=== PATIENT | female | born 1950 | race Two or more races ===

== ENCOUNTER 2022-05-23 19:12 | Inpatient (IN) | payer MEDICARE, MEDICAID ==
[~2022-05-23] VITALS: Ht 157.5 cm; Wt 101.0 kg
[~2022-05-23 19:12] MED LIST: ALPR1TAB7 PO; AMLO-257 PO; ASPI81TA39 PO; ATOR40TA28 PO; ESCI20TA87 PO; FAMO40TA76 PO; LANS30CA55 PO; LEVO125T4 PO; METO25 PO; OLME40TA70 PO; PIOG15TA6 PO; PREG150C PO; TRAM50TA4 PO
[2022-05-23] MEDS ORDERED: SODIUM CHLORIDE 0.9% 2,000 ML IV ONE (19:30)
[2022-05-23 19:55] LABS: ABG BASE EXCESS 0.5 mmol/L (-2.0-3.0); ABG HCO3 24.3 mmol/L (22.0-26.0); ABG METHEMOGLOBIN 0.2 % (0.0-1.5); ABG OXYGEN CONTENT 16.7 mL/dL (15.0-23.0); ABG OXYGEN SATURATION 99.4 % (95.0-98.0); ABG OXYHEMOGLOBIN 99.2 % (94.0-100.0); ABG PCO2 58 mmHg (35-45); ABG PH 7.288 (7.35-7.450); ABG TOTAL HEMOGLOBIN 11.3 G/dL (12.0-18.0); PO2, ARTERIAL BG 355.9 mmHg (75.0-83.0); SOURCE, BLOOD GAS ARTERIAL; TEMPERATURE, FAHRENHEIT, BG 98.6 FAHREN (96.0-98.6)
[2022-05-23 19:56] LABS: O2 DEVICE,BLOOD GAS NON REBREATHER (ROOM AIR); SITE, BLOOD GAS RT RADIAL
[2022-05-23] MEDS ORDERED: OXYGEN THERAPY IH SCH (20:00)
[2022-05-23 20:02] LABS: BASOPHILS % (AUTO) 0.8 % (0.0-2.0); EOSINOPHILS % (AUTO) 0.2 % (1.0-6.0); HEMATOCRIT 25.2 % (36-46); LYMPHOCYTES # (AUTO) 1.6 K/uL (1.0-4.8); LYMPHOCYTES % (AUTO) 18.9 % (22.0-44.0); MEAN CORPUSCULAR HEMOGLOBIN 24.2 pg (26.0-34.0); MEAN CORPUSCULAR HGB CONC 31.6 G/dL (31.0-37.0); MEAN CORPUSCULAR VOLUME 77 fL (80-100); MONOCYTES # (AUTO) 1.3 K/uL (0.1-1.0); MONOCYTES % (AUTO) 15.2 % (2.0-9.0); NEUTROPHILS # (AUTO) 5.6 K/uL (1.8-7.7); NEUTROPHILS % (AUTO) 64.9 % (40.0-70.0); PLATELET COUNT (AUTO) 189 K/uL (150-450); RED BLOOD CELL COUNT(AUTO) 3.29 MIL/uL (4.00-5.20); RED CELL DISTRIBUTION WIDTH 21.4 % (11.5-14.5)
[2022-05-23 20:04] LABS: CALCIUM, TOTAL 8.1 mg/dL (8.8-10.5); CREATININE 3.12 mg/dL (0.60-1.30); POTASSIUM 3.3 mmol/L (3.5-5.1)
[2022-05-23 20:06] LABS: COVID AG,FIA SOURCE NASAL SWAB
[2022-05-23 20:09] LABS: PROTHROMBIN TIME 11.1 SEC (9.4-11.6)
[2022-05-23 20:10] LABS: LACTIC ACID 0.4 mmol/L (0.4-2.0)
[2022-05-23 20:16] LABS: ALBUMIN 2.6 g/dL (3.4-5.0); BILIRUBIN,TOTAL 0.4 mg/dL (0.1-1.0); MAGNESIUM 2.4 mg/dL (1.80-2.40)
[2022-05-23 20:26] LABS: AMMONIA 34 umol/L (11-32)
[2022-05-23 20:27] LABS: AMPHET/METH SCREEN,URINE NEGATIVE (NEGATIVE); BARBITURATE SCREEN, URINE NEGATIVE (NEGATIVE); BENZODIAZEPINES SCREEN,URINE POSITIVE (NEGATIVE); CANNABINOID SCREEN,URINE POSITIVE (NEGATIVE); COCAINE SCREEN,URINE NEGATIVE (NEGATIVE); METHADONE SCREEN, URINE NEGATIVE (NEGATIVE); OPIATE SCREEN,URINE NEGATIVE (NEGATIVE)
[2022-05-23 20:28] LABS: PHENCYCLIDINE SCREEN,URINE NEGATIVE (NEGATIVE)
[2022-05-23 20:54] LABS: INFLUENZA TYPE A NEGATIVE FOR TYPE A (NEGATIVE); INFLUENZA TYPE B NEGATIVE FOR TYPE B (NEGATIVE)
[2022-05-23] MEDS ORDERED: FLUMAZENIL 0.1 MG/ML 5 ML VIAL IVP ONE (21:00)
[2022-05-23] MEDS ORDERED: NALOXONE HCL 1 MG/ML 2 ML SYRINGE IVP ONE (21:00)
[2022-05-23] MEDS ORDERED: SODIUM CHLORIDE 0.9% 3,100 ML IV ONE (21:15)
[2022-05-23] MEDS ORDERED: ONDANSETRON HCL 4 MG/2 ML VIAL IVP PRN (21:15)
[2022-05-23] MEDS ORDERED: ASPIRIN 300 MG RECTAL SUPPOSITORY PR ONE (21:15)
[2022-05-23] MEDS ORDERED: SODIUM CHLORIDE 0.9% 250 ML IV ONE (21:15)
[2022-05-23] MEDS ORDERED: CefTRIAXone 1 GM/DEXTROSE 50 ML IV ONE (21:15)
[2022-05-23] MEDS ORDERED: HEPARIN SODIUM,PORCINE 5,000 UNITS/ML VIAL IVP ONE (21:15)
[2022-05-23] MEDS ORDERED: HEPARIN SODIUM,PORCINE 5,000 UNITS/ML VIAL IVP PRN ×2 (21:15)
[2022-05-23 21:18] LABS: ABG CARBOXYHEMOGLOBIN 0.1 % (0.0-1.5); ABG HCO3 22.8 mmol/L (22.0-26.0); ABG OXYGEN CONTENT 15.1 mL/dL (15.0-23.0); ABG OXYGEN SATURATION 94.8 % (95.0-98.0); ABG OXYHEMOGLOBIN 94.7 % (94.0-100.0); ABG PCO2 64 mmHg (35-45); ABG PH 7.235 (7.35-7.450); ABG TOTAL HEMOGLOBIN 11.3 G/dL (12.0-18.0); O2 DEVICE,BLOOD GAS CANNULA (ROOM AIR); PO2, ARTERIAL BG 87.1 mmHg (75.0-83.0); SITE, BLOOD GAS LFT RADIAL; SOURCE, BLOOD GAS ARTERIAL; TEMPERATURE, FAHRENHEIT, BG 98.6 FAHREN (96.0-98.6)
[2022-05-23] MEDS ORDERED: DEXTROSE 50%-WATER 25 GM/50 ML SYRINGE IVP PRN (21:30)
[2022-05-23] MEDS ORDERED: FLUMAZENIL 0.1 MG/ML 5 ML VIAL IVP PRN (21:45)
[2022-05-23 21:53] LABS: RETICULOCYTE % (AUTO) 1.6 % (0.5-2.3)
[2022-05-23 22:00] LABS: % IRON SATURATION 5.5 % (22-44)
[2022-05-23] MEDS: HEPARIN SODIUM 25000 UNITS/D5W 250 ML IV PRN (22:02)
[2022-05-23 22:40] LABS: CREATININE,URINE RANDOM 300.8 mg/dL (30.0-125.0)
[2022-05-23 22:50] LABS: APPEARANCE,URINE TURBID (CLEAR); BILIRUBIN,URINE NEGATIVE (NEGATIVE); GLUCOSE, URINE (UA) NEGATIVE (NEGATIVE); KETONES,URINE TRACE mg/dL (NEGATIVE); LEUKOCYTE ESTERASE ,URINE LARGE (NEGATIVE); NITRATE,URINE NEGATIVE (NEGATIVE); OCCULT BLOOD,URINE SMALL (NEGATIVE); PH,URINE 5.5 (5.0-8.0); PROTEIN,URINE 300-600,SEE CONFIRM mg/dL (NEGATIVE); SPECIFIC GRAVITIY, URINE 1.022 (1.003-1.030)
[2022-05-23 22:58] LABS: BACTERIA,URINE Many /HPF (None Seen); RBC,URINE 0-2 /HPF (0-2); SULFOSALICYLIC ACID,URINE 2+ (Negative); WBC,URINE 26-50 /HPF (0-5)
[2022-05-23] MEDS ORDERED: NOREPINEPHRINE 8 MG/D5%-WATER 250 ML IV PRN (23:45)
[2022-05-24] MEDS ORDERED: HEPARIN SODIUM,PORCINE 5,000 UNITS/ML VIAL SQ SCH
[2022-05-24] MEDS ORDERED: NOREPINEPHRINE 8 MG/D5%-WATER 250 ML IV PRN (00:15)
[2022-05-24 00:31] LABS: ABG CARBOXYHEMOGLOBIN 0.3 % (0.0-1.5); ABG HCO3 22.8 mmol/L (22.0-26.0); ABG METHEMOGLOBIN 0.2 % (0.0-1.5); ABG OXYGEN CONTENT 14.5 mL/dL (15.0-23.0); ABG OXYGEN SATURATION 94.4 % (95.0-98.0); ABG OXYHEMOGLOBIN 93.9 % (94.0-100.0); ABG PCO2 65 mmHg (35-45); ABG PH 7.228 (7.35-7.450); ABG TOTAL HEMOGLOBIN 10.9 G/dL (12.0-18.0); PO2, ARTERIAL BG 83.7 mmHg (75.0-83.0); SOURCE, BLOOD GAS ARTERIAL; TEMPERATURE, FAHRENHEIT, BG 98.6 FAHREN (96.0-98.6)
[2022-05-24 00:32] LABS: SITE, BLOOD GAS RT RADIAL
[2022-05-24 00:33] LABS: O2 DEVICE,BLOOD GAS BIPAP (ROOM AIR)
[2022-05-24] MEDS ORDERED: ETOMIDATE 2 MG/ML 10 ML VIAL ONE (00:42)
[2022-05-24] MEDS ORDERED: ROCURONIUM BROMIDE 10 MG/ML 5 ML VIAL ONE (00:43)
[2022-05-24] MEDS ORDERED: ROCURONIUM BROMIDE 10 MG/ML 5 ML VIAL IVP ONE (01:45)
[2022-05-24] MEDS ORDERED: ETOMIDATE 2 MG/ML 10 ML VIAL IVP ONE (01:45)
[2022-05-24] MEDS ORDERED: PROPOFOL 1000 MG/ISO-OSM 100 ML ONE (04:10)
[2022-05-24] MEDS: PROPOFOL 1000 MG/ISO-OSM 100 ML IV PRN ×2 (04:25→12:44)
[2022-05-24 04:32] LABS: EOSINOPHILS % (AUTO) 0.5 % (1.0-6.0); LYMPHOCYTES # (AUTO) 2.8 K/uL (1.0-4.8); LYMPHOCYTES % (AUTO) 22.8 % (22.0-44.0); MEAN CORPUSCULAR HEMOGLOBIN 24.2 pg (26.0-34.0); MEAN CORPUSCULAR VOLUME 76 fL (80-100); MONOCYTES # (AUTO) 1.6 K/uL (0.1-1.0); MONOCYTES % (AUTO) 13.1 % (2.0-9.0); NEUTROPHILS # (AUTO) 7.6 K/uL (1.8-7.7); NEUTROPHILS % (AUTO) 62.6 % (40.0-70.0); PLATELET COUNT (AUTO) 272 K/uL (150-450); RED BLOOD CELL COUNT(AUTO) 4.57 MIL/uL (4.00-5.20)
[2022-05-24 04:47] LABS: CALCIUM, TOTAL 7.7 mg/dL (8.8-10.5); CREATININE 2.02 mg/dL (0.60-1.30); MAGNESIUM 2.1 mg/dL (1.80-2.40)
[2022-05-24 04:50] LABS: POTASSIUM 2.7 mmol/L (3.5-5.1)
[2022-05-24 04:55] LABS: HEMATOCRIT 34.5 % (36-46)
[2022-05-24 05:00] VITALS: BP 134/77
[2022-05-24] MEDS ORDERED: POTASSIUM CHLORIDE 10% 40 MEQ/30 ML LIQUID UDCUP GT ONE (07:15)
[2022-05-24] MEDS ORDERED: POTASSIUM CHLORIDE 10% 40 MEQ/30 ML LIQUID UDCUP PO ONE (07:30)
[2022-05-24] MEDS ORDERED: POTASSIUM CHLORIDE 10% 40 MEQ/30 ML LIQUID UDCUP NG ONE (07:30)
[2022-05-24] MEDS ORDERED: ATORVASTATIN CALCIUM 40 MG TABLET GT ONE (07:45)
[2022-05-24] MEDS: POTASSIUM CHL 10 MEQ/WATER 50 ML IV SCH ×2 (07:54→09:02)
[2022-05-24 08:00] VITALS: BP 103/61
[2022-05-24 08:55] LABS: PHOSPHORUS 3.7 mg/dL (2.5-4.9)
[2022-05-24] MEDS: ETHYL ALCOHOL 62% ANTISEPTIC NASAL SANITIZER 0.6 ML AMPUL NASAL SCH ×2 (09:02→21:28)
[2022-05-24] MEDS: ACETAMINOPHEN 325 MG TABLET PO PRN (09:18)
[2022-05-24] MEDS ORDERED: ASPIRIN 81 MG DR TABLET NG SCH (11:00)
[2022-05-24] MEDS ORDERED: MV-M1TAB88 PO (11:16)
[2022-05-24] MEDS ORDERED: SERT-162 PO (11:16)
[2022-05-24] MEDS ORDERED: LORA10TA7 PO (11:16)
[2022-05-24] MEDS ORDERED: CALC1TAB3 PO (11:16)
[2022-05-24] MEDS ORDERED: LIDO76.5 TP (11:16)
[2022-05-24] MEDS ORDERED: VITA0.4T20 PO (11:16)
[2022-05-24] MEDS ORDERED: LEVO137T24 PO ×2 (11:16)
[2022-05-24] MEDS ORDERED: OMEP20 PO (11:16)
[2022-05-24] MEDS ORDERED: BREX0.5T PO (11:16)
[2022-05-24] MEDS ORDERED: POTA-202 PO (11:16)
[2022-05-24] MEDS ORDERED: CARB1DRO9 OS (11:16)
[2022-05-24] MEDS ORDERED: CLON0.1T2 PO (11:16)
[2022-05-24] MEDS ORDERED: TELM40 PO (11:16)
[2022-05-24] MEDS ORDERED: PROP1DRO4 OU (11:16)
[2022-05-24] MEDS ORDERED: PREG75 PO (11:16)
[2022-05-24] MEDS ORDERED: ISOS60TA77 PO (11:16)
[2022-05-24] MEDS ORDERED: FLUT16H NASAL (11:16)
[2022-05-24] MEDS ORDERED: METF-1211 PO (11:16)
[2022-05-24] MEDS ORDERED: SALI45SP PO (11:16)
[2022-05-24] MEDS ORDERED: MEMA10TA11 PO (11:16)
[2022-05-24] MEDS ORDERED: CARV12 PO (11:16)
[2022-05-24 12:00] VITALS: BP 113/59
[2022-05-24 12:56] LABS: GLUCOSE,POINT OF CARE 107 MG/DL (70-110)
[2022-05-24] MEDS: CefTRIAXone 1 GM/DEXTROSE 50 ML IV SCH (13:25)
[2022-05-24] MEDS ORDERED: POTA-206 PO (13:27)
[2022-05-24 14:27] LABS: GLUCOSE,POINT OF CARE 127 MG/DL (70-110)
[2022-05-24 15:28] LABS: HEMOGLOBIN A1C 5.9 % (3.8-5.6)
[2022-05-24 15:31] LABS: ANION GAP 7 mmol/L (8-16); CALCIUM, TOTAL 7.9 mg/dL (8.8-10.5); CARBON DIOXIDE 29 mmol/L (22-29); CHLORIDE 108 mmol/L (98-107); CREATININE 0.87 mg/dL (0.60-1.30); GLUCOSE,RANDOM 128 mg/dL (70-110); PHOSPHORUS 1.8 mg/dL (2.5-4.9); SODIUM SERUM 144 mmol/L (136-145); UREA NITROGEN, BLOOD 33 mg/dL (7-18)
[2022-05-24 15:44] LABS: GLOMERULAR FILTR. RATE CALC > 60 mL/min (>60); POTASSIUM 2.5 mmol/L (3.5-5.1)
[2022-05-24 16:00] VITALS: BP 143/82
[2022-05-24] MEDS ORDERED: POTASSIUM CHLORIDE 20 MEQ ER TABLET PO PRN (16:00)
[2022-05-24] MEDS: POTASSIUM CHL 10 MEQ/WATER 50 ML IV PRN ×3 (16:11→19:21)
[2022-05-24] MEDS ORDERED: SODIUM CHLORIDE 0.9% 1,000 ML ONE (16:15)
[2022-05-24] MEDS ORDERED: POTASSIUM CHLORIDE 20 MEQ ER TABLET PO ONE (18:30)
[2022-05-24] MEDS: POTASSIUM CHLORIDE 10% 40 MEQ/30 ML LIQUID UDCUP GT PRN ×2 (18:37→21:51)
[2022-05-24 18:40] LABS: GLUCOSE,POINT OF CARE 120 MG/DL (70-110)
[2022-05-24 19:18] LABS: CREATININE,URINE RANDOM 39.9 mg/dL (30.0-125.0)
[2022-05-24 20:00] VITALS: BP 138/70
[2022-05-24] MEDS: SODIUM,POTASSIUM PHOSPHATES POWDER PACKET PO SCH (21:58)
[2022-05-24 22:31] LABS: GLUCOSE,POINT OF CARE 115 MG/DL (70-110)
[2022-05-25] VITALS (8 sets, daily range): BP systolic 99–163; BP diastolic 68–87
[2022-05-25] MEDS: PROPOFOL 1000 MG/ISO-OSM 100 ML IV PRN ×3 (03:43→12:01)
[2022-05-25] MEDS: HEPARIN SODIUM 25000 UNITS/D5W 250 ML IV PRN ×3 (05:11→21:55)
[2022-05-25 05:55] LABS: HEMOGLOBIN A1C 5.9 % (3.8-5.6)
[2022-05-25 06:15] LABS: ANION GAP 6 mmol/L (8-16); CALCIUM, TOTAL 8.4 mg/dL (8.8-10.5); CARBON DIOXIDE 30 mmol/L (22-29); CHLORIDE 111 mmol/L (98-107); CHOL/HDL RATIO 4.9 (3.9-5.7); CHOLESTEROL 94 mg/dL (131-200); GLUCOSE,RANDOM 108 mg/dL (70-110); HDL CHOLESTEROL 19 mg/dL (40-60); LDL CHOL (CALC.) 46 mg/dL (0-130); PHOSPHORUS 1.9 mg/dL (2.5-4.9); SODIUM SERUM 147 mmol/L (136-145); TRIGLYCERIDES 143 mg/dL (15-150); UREA NITROGEN, BLOOD 19 mg/dL (7-18)
[2022-05-25 06:16] LABS: GLUCOSE,POINT OF CARE 104 MG/DL (70-110)
[2022-05-25 06:24] LABS: GLOMERULAR FILTR. RATE CALC > 60 mL/min (>60)
[2022-05-25 06:25] LABS: POTASSIUM 2.7 mmol/L (3.5-5.1)
[2022-05-25] MEDS: POTASSIUM CHL 10 MEQ/WATER 50 ML IV PRN ×7 (06:29→21:56)
[2022-05-25 07:49] LABS: BASOPHILS % (AUTO) 1.5 % (0.0-2.0); EOSINOPHILS % (AUTO) 1.3 % (1.0-6.0); HEMATOCRIT 32.2 % (36-46); HEMOGLOBIN 10.7 g/dL (12.0-16.0); LYMPHOCYTES # (AUTO) 1.5 K/uL (1.0-4.8); LYMPHOCYTES % (AUTO) 18.1 % (22.0-44.0); MEAN CORPUSCULAR HEMOGLOBIN 24.7 pg (26.0-34.0); MEAN CORPUSCULAR HGB CONC 33.4 G/dL (31.0-37.0); MEAN CORPUSCULAR VOLUME 74 fL (80-100); MONOCYTES # (AUTO) 0.9 K/uL (0.1-1.0); MONOCYTES % (AUTO) 10.9 % (2.0-9.0); NEUTROPHILS # (AUTO) 5.6 K/uL (1.8-7.7); NEUTROPHILS % (AUTO) 68.2 % (40.0-70.0); PLATELET COUNT (AUTO) 297 K/uL (150-450); RED BLOOD CELL COUNT(AUTO) 4.35 MIL/uL (4.00-5.20); RED CELL DISTRIBUTION WIDTH 20.8 % (11.5-14.5)
[2022-05-25] MEDS ORDERED: POTASSIUM CHL 10 MEQ/WATER 50 ML IV SCH (08:30)
[2022-05-25] MEDS: ETHYL ALCOHOL 62% ANTISEPTIC NASAL SANITIZER 0.6 ML AMPUL NASAL SCH ×2 (08:30→21:49)
[2022-05-25] MEDS ORDERED: POTASSIUM PHOS,M-BASIC-D-BASIC 20 MEQ in DEXTROSE 5%-WATER 100 ML IV ONE (08:30)
[2022-05-25] MEDS: SODIUM,POTASSIUM PHOSPHATES POWDER PACKET PO SCH (10:22)
[2022-05-25] MEDS: ATORVASTATIN CALCIUM 40 MG TABLET NG SCH (10:22)
[2022-05-25] MEDS: ASPIRIN 81 MG CHEWABLE TABLET NG SCH (10:22)
[2022-05-25] MEDS ORDERED: SODIUM CHLORIDE 0.9% 500 ML IV ONE (13:53)
[2022-05-25] MEDS: CefTRIAXone 1 GM/DEXTROSE 50 ML IV SCH (13:56)
[2022-05-25] MEDS: ACETAMINOPHEN 325 MG TABLET PO PRN (16:57)
[2022-05-25] MEDS: DEXMEDETOMIDINE HCL 400 MCG in SODIUM CHLORIDE 0.9% 96 ML IV PRN (18:38)
[2022-05-25 19:16] LABS: GLUCOSE,POINT OF CARE 105 MG/DL (70-110)
[2022-05-25 19:16] LABS: GLUCOSE,POINT OF CARE 103 MG/DL (70-110)
[2022-05-25] MEDS: METOPROLOL TARTRATE 25 MG TABLET PO SCH (21:49)
[2022-05-26] VITALS (8 sets, daily range): BP systolic 108–161; BP diastolic 60–96
[2022-05-26] MEDS: PROPOFOL 1000 MG/ISO-OSM 100 ML IV PRN ×3 (00:31→21:42)
[2022-05-26 01:01] LABS: GLUCOSE,POINT OF CARE 131 MG/DL (70-110)
[2022-05-26 03:39] LABS: ANION GAP 9 mmol/L (8-16); CALCIUM, TOTAL 8.5 mg/dL (8.8-10.5); CARBON DIOXIDE 29 mmol/L (22-29); CHLORIDE 107 mmol/L (98-107); CREATININE 0.52 mg/dL (0.60-1.30); GLUCOSE,RANDOM 120 mg/dL (70-110); POTASSIUM 3.1 mmol/L (3.5-5.1); SODIUM SERUM 145 mmol/L (136-145); UREA NITROGEN, BLOOD 10 mg/dL (7-18)
[2022-05-26 03:40] LABS: GLOMERULAR FILTR. RATE CALC > 60 mL/min (>60)
[2022-05-26 04:57] LABS: PHOSPHORUS 2.6 mg/dL (2.5-4.9)
[2022-05-26] MEDS ORDERED: HydrALAZINE HCL 20 MG/ML VIAL ONE (05:15)
[2022-05-26] MEDS: HydrALAZINE HCL 20 MG/ML VIAL IVP PRN (05:34)
[2022-05-26] MEDS: POTASSIUM CHLORIDE 10% 40 MEQ/30 ML LIQUID UDCUP GT PRN (06:24)
[2022-05-26 06:27] LABS: GLUCOSE,POINT OF CARE 124 MG/DL (70-110)
[2022-05-26] MEDS ORDERED: MAGNESIUM SULFATE 4 GM/WATER 100 ML IV PRN (06:30)
[2022-05-26] MEDS ORDERED: MAGNESIUM SULFATE 2 GM/WATER 50 ML IV PRN (06:30)
[2022-05-26] MEDS: ATORVASTATIN CALCIUM 40 MG TABLET NG SCH (08:16)
[2022-05-26] MEDS: ASPIRIN 81 MG CHEWABLE TABLET NG SCH (08:16)
[2022-05-26] MEDS: ETHYL ALCOHOL 62% ANTISEPTIC NASAL SANITIZER 0.6 ML AMPUL NASAL SCH ×2 (08:16→21:16)
[2022-05-26] MEDS: METOPROLOL TARTRATE 25 MG TABLET PO SCH ×2 (08:18→21:16)
[2022-05-26] MEDS ORDERED: IOHEXOL 350 MG/ML 100 ML VIAL ONE (09:07)
[2022-05-26] MEDS ORDERED: SODIUM CHLORIDE 0.9% 100 ML ONE (09:07)
[2022-05-26 11:29] LABS: ABG BASE EXCESS 0.4 mmol/L (-2.0-3.0); ABG CARBOXYHEMOGLOBIN 0.4 % (0.0-1.5); ABG HCO3 25.1 mmol/L (22.0-26.0); ABG METHEMOGLOBIN 0.3 % (0.0-1.5); ABG OXYGEN CONTENT 15.6 mL/dL (15.0-23.0); ABG OXYGEN SATURATION 95.4 % (95.0-98.0); ABG OXYHEMOGLOBIN 94.7 % (94.0-100.0); ABG PCO2 35 mmHg (35-45); ABG PH 7.461 (7.35-7.450); ABG TOTAL HEMOGLOBIN 11.7 G/dL (12.0-18.0); PO2, ARTERIAL BG 77.5 mmHg (75.0-83.0); SOURCE, BLOOD GAS ARTERIAL; TEMPERATURE, FAHRENHEIT, BG 98.4 FAHREN (96.0-98.6)
[2022-05-26] MEDS: HEPARIN SODIUM 25000 UNITS/D5W 250 ML IV PRN (11:30)
[2022-05-26] MEDS: CefTRIAXone 1 GM/DEXTROSE 50 ML IV SCH (13:24)
[2022-05-26] MEDS: DEXMEDETOMIDINE HCL 400 MCG in SODIUM CHLORIDE 0.9% 96 ML IV PRN (14:03)
[2022-05-26 15:25] LABS: ABG A-A DIFF O2 95.7 mmHg (10-20.0); O2 DEVICE,BLOOD GAS VENTILATOR (ROOM AIR); SITE, BLOOD GAS LFT RADIAL; VENT MODE, BG CPAP (ROOM AIR)
[2022-05-26 15:34] LABS: CPAP, BG 5 cm H2O; PRESSURE SUPPORT, BG 10 cm H2O; SPONTANEOUS VT, BG 374 ml
[2022-05-26] MEDS: POTASSIUM CHL 10 MEQ/WATER 50 ML IV PRN ×3 (16:36→19:24)
[2022-05-26] MEDS: INSULIN LISPRO 100 UNITS/ML SQ PRN (17:38)
[2022-05-26 19:16] LABS: GLUCOSE,POINT OF CARE 142 MG/DL (70-110)
[2022-05-26 19:16] LABS: GLUCOSE,POINT OF CARE 112 MG/DL (70-110)
[2022-05-27] VITALS: BP 118/79
[2022-05-27 01:01] LABS: GLUCOSE,POINT OF CARE 128 MG/DL (70-110)
[2022-05-27] MEDS ORDERED: SODIUM CHLORIDE 0.9% 250 ML IV ONE ×3 (01:09→06:45)
[2022-05-27] MEDS: DEXMEDETOMIDINE HCL 400 MCG in SODIUM CHLORIDE 0.9% 96 ML IV PRN ×3 (03:08→17:04)
[2022-05-27 04:00] VITALS: BP 148/94
[2022-05-27] MEDS: PROPOFOL 1000 MG/ISO-OSM 100 ML IV PRN (05:05)
[2022-05-27 06:02] LABS: BASOPHILS % (AUTO) 1.1 % (0.0-2.0); HEMATOCRIT 35.6 % (36-46); HEMOGLOBIN 11.4 g/dL (12.0-16.0); LYMPHOCYTES # (AUTO) 1.7 K/uL (1.0-4.8); MEAN CORPUSCULAR HEMOGLOBIN 24.4 pg (26.0-34.0); MEAN CORPUSCULAR HGB CONC 32.1 G/dL (31.0-37.0); MEAN CORPUSCULAR VOLUME 76 fL (80-100); MONOCYTES # (AUTO) 0.6 K/uL (0.1-1.0); MONOCYTES % (AUTO) 8.1 % (2.0-9.0); NEUTROPHILS % (AUTO) 65.8 % (40.0-70.0); PLATELET COUNT (AUTO) 369 K/uL (150-450); RED BLOOD CELL COUNT(AUTO) 4.68 MIL/uL (4.00-5.20)
[2022-05-27 06:16] LABS: ANION GAP 8 mmol/L (8-16); CALCIUM, TOTAL 8.4 mg/dL (8.8-10.5); CARBON DIOXIDE 27 mmol/L (22-29); CHLORIDE 105 mmol/L (98-107); CREATININE 0.58 mg/dL (0.60-1.30); GLUCOSE,RANDOM 123 mg/dL (70-110); PHOSPHORUS 3.5 mg/dL (2.5-4.9); POTASSIUM 3.1 mmol/L (3.5-5.1); SODIUM SERUM 140 mmol/L (136-145); UREA NITROGEN, BLOOD 14 mg/dL (7-18)
[2022-05-27 06:18] LABS: GLOMERULAR FILTR. RATE CALC > 60 mL/min (>60)
[2022-05-27] MEDS: HEPARIN SODIUM 25000 UNITS/D5W 250 ML IV PRN ×2 (07:00→21:41)
[2022-05-27] MEDS: POTASSIUM CHL 10 MEQ/WATER 50 ML IV PRN ×3 (07:01→10:09)
[2022-05-27 08:00] VITALS: BP 107/66
[2022-05-27] MEDS: METOPROLOL TARTRATE 25 MG TABLET PO SCH ×2 (08:53→21:00)
[2022-05-27] MEDS: ATORVASTATIN CALCIUM 40 MG TABLET NG SCH (08:53)
[2022-05-27] MEDS: ETHYL ALCOHOL 62% ANTISEPTIC NASAL SANITIZER 0.6 ML AMPUL NASAL SCH ×2 (08:53→21:25)
[2022-05-27] MEDS: ASPIRIN 81 MG CHEWABLE TABLET NG SCH (08:55)
[2022-05-27 12:00] VITALS: BP 135/83
[2022-05-27] MEDS: CefTRIAXone 1 GM/DEXTROSE 50 ML IV SCH (12:06)
[2022-05-27] MEDS: INSULIN LISPRO 100 UNITS/ML SQ PRN ×2 (13:11→17:08)
[2022-05-27] MEDS ORDERED: SODIUM CHLORIDE 0.9% 1,000 ML ONE (14:13)
[2022-05-27] MEDS: POTASSIUM CHLORIDE 10% 40 MEQ/30 ML LIQUID UDCUP GT PRN (14:20)
[2022-05-27 15:06] LABS: GLUCOSE,POINT OF CARE 126 MG/DL (70-110)
[2022-05-27 15:06] LABS: GLUCOSE,POINT OF CARE 156 MG/DL (70-110)
[2022-05-27 16:00] VITALS: BP 166/95
[2022-05-27] MEDS: HydrALAZINE HCL 20 MG/ML VIAL IVP PRN (16:22)
[2022-05-27 19:26] LABS: GLUCOSE,POINT OF CARE 161 MG/DL (70-110)
[2022-05-27 20:00] VITALS: BP 96/65
[2022-05-28] VITALS: BP 93/67
[2022-05-28 04:00] VITALS: BP 125/63
[2022-05-28 05:51] LABS: GLUCOSE,POINT OF CARE 109 MG/DL (70-110)
[2022-05-28] MEDS: PROPOFOL 1000 MG/ISO-OSM 100 ML IV PRN ×4 (06:02→21:29)
[2022-05-28] MEDS ORDERED: SODIUM CHLORIDE 0.9% 250 ML IV ONE (06:21)
[2022-05-28 06:26] LABS: ANION GAP 7 mmol/L (8-16); CALCIUM, TOTAL 8.6 mg/dL (8.8-10.5); CARBON DIOXIDE 28 mmol/L (22-29); CHLORIDE 109 mmol/L (98-107); CREATININE 0.45 mg/dL (0.60-1.30); GLUCOSE,RANDOM 119 mg/dL (70-110); PHOSPHORUS 3.6 mg/dL (2.5-4.9); POTASSIUM 3.2 mmol/L (3.5-5.1); SODIUM SERUM 144 mmol/L (136-145); UREA NITROGEN, BLOOD 18 mg/dL (7-18)
[2022-05-28 06:29] LABS: GLOMERULAR FILTR. RATE CALC > 60 mL/min (>60)
[2022-05-28] MEDS: POTASSIUM CHLORIDE 10% 40 MEQ/30 ML LIQUID UDCUP GT PRN (06:49)
[2022-05-28 07:01] LABS: GLUCOSE,POINT OF CARE 109 MG/DL (70-110)
[2022-05-28 08:00] VITALS: BP 128/72
[2022-05-28] MEDS: ATORVASTATIN CALCIUM 40 MG TABLET NG SCH (08:09)
[2022-05-28] MEDS: ASPIRIN 81 MG CHEWABLE TABLET NG SCH (08:09)
[2022-05-28] MEDS: ETHYL ALCOHOL 62% ANTISEPTIC NASAL SANITIZER 0.6 ML AMPUL NASAL SCH ×2 (08:09→21:39)
[2022-05-28] MEDS: METOPROLOL TARTRATE 25 MG TABLET PO SCH ×2 (08:09→21:00)
[2022-05-28] MEDS: HydrALAZINE HCL 20 MG/ML VIAL IVP PRN (11:40)
[2022-05-28] MEDS: HEPARIN SODIUM 25000 UNITS/D5W 250 ML IV PRN (11:41)
[2022-05-28 12:00] VITALS: BP 151/78
[2022-05-28] MEDS: POTASSIUM CHL 10 MEQ/WATER 50 ML IV SCH ×4 (12:58→16:59)
[2022-05-28 13:31] LABS: GLUCOSE,POINT OF CARE 115 MG/DL (70-110)
[2022-05-28] MEDS: CEFEPIME HCL 2 GM in DEXTROSE 5%-WATER 50 ML IV SCH (14:03)
[2022-05-28 16:00] VITALS: BP 106/55
[2022-05-28 16:04] LABS: APPEARANCE,URINE CLEAR (CLEAR); BILIRUBIN,URINE NEGATIVE (NEGATIVE); GLUCOSE, URINE (UA) NEGATIVE (NEGATIVE); KETONES,URINE NEGATIVE (NEGATIVE); LEUKOCYTE ESTERASE ,URINE MODERATE (NEGATIVE); NITRATE,URINE NEGATIVE (NEGATIVE); OCCULT BLOOD,URINE TRACE (NEGATIVE); PH,URINE 5.5 (5.0-8.0); PROTEIN,URINE 30-70 mg/dL (NEGATIVE); SPECIFIC GRAVITIY, URINE 1.022 (1.003-1.030); UROBILINOGEN,URINE <=1.0 mg/dL (<=1.0)
[2022-05-28 16:34] LABS: YEAST,URINE Few /HPF (None Seen)
[2022-05-28 16:36] LABS: BACTERIA,URINE Moderate /HPF (None Seen)
[2022-05-28 17:22] LABS: C.DIFF GDH ANTIGEN, Stool Negative (Negative)
[2022-05-28 17:23] LABS: C.DIFF TOXINS A&B, Stool Negative (Negative)
[2022-05-28 20:00] VITALS: BP 123/69
[2022-05-28 21:01] LABS: GLUCOSE,POINT OF CARE 105 MG/DL (70-110)
[2022-05-29] VITALS (8 sets, daily range): BP systolic 90–147; BP diastolic 60–73
[2022-05-29] MEDS: CEFEPIME HCL 2 GM in DEXTROSE 5%-WATER 50 ML IV SCH ×2 (01:04→14:10)
[2022-05-29] MEDS: PROPOFOL 1000 MG/ISO-OSM 100 ML IV PRN ×2 (01:05→04:43)
[2022-05-29] MEDS: HEPARIN SODIUM 25000 UNITS/D5W 250 ML IV PRN ×2 (01:06→19:41)
[2022-05-29 01:46] LABS: GLUCOSE,POINT OF CARE 110 MG/DL (70-110)
[2022-05-29 05:25] LABS: BASOPHILS % (AUTO) 0.8 % (0.0-2.0); EOSINOPHILS % (AUTO) 2.5 % (1.0-6.0); LYMPHOCYTES # (AUTO) 1.8 K/uL (1.0-4.8); LYMPHOCYTES % (AUTO) 17.9 % (22.0-44.0); MEAN CORPUSCULAR HEMOGLOBIN 24.7 pg (26.0-34.0); MEAN CORPUSCULAR HGB CONC 32.4 G/dL (31.0-37.0); MEAN CORPUSCULAR VOLUME 76 fL (80-100); MONOCYTES # (AUTO) 0.9 K/uL (0.1-1.0); MONOCYTES % (AUTO) 9.5 % (2.0-9.0); NEUTROPHILS # (AUTO) 6.9 K/uL (1.8-7.7); NEUTROPHILS % (AUTO) 69.3 % (40.0-70.0); PLATELET COUNT (AUTO) 400 K/uL (150-450); RED BLOOD CELL COUNT(AUTO) 4.07 MIL/uL (4.00-5.20); RED CELL DISTRIBUTION WIDTH 21.6 % (11.5-14.5)
[2022-05-29 05:33] LABS: ANION GAP 5 mmol/L (8-16); CALCIUM, TOTAL 8.4 mg/dL (8.8-10.5); CARBON DIOXIDE 27 mmol/L (22-29); CHLORIDE 109 mmol/L (98-107); CREATININE 0.56 mg/dL (0.60-1.30); GLUCOSE,RANDOM 116 mg/dL (70-110); SODIUM SERUM 141 mmol/L (136-145); UREA NITROGEN, BLOOD 20 mg/dL (7-18)
[2022-05-29 05:40] LABS: GLOMERULAR FILTR. RATE CALC > 60 mL/min (>60)
[2022-05-29 06:51] LABS: GLUCOSE,POINT OF CARE 111 MG/DL (70-110)
[2022-05-29] MEDS: ETHYL ALCOHOL 62% ANTISEPTIC NASAL SANITIZER 0.6 ML AMPUL NASAL SCH ×2 (08:20→20:16)
[2022-05-29] MEDS: METOPROLOL TARTRATE 25 MG TABLET PO SCH ×2 (08:21→20:16)
[2022-05-29] MEDS: ATORVASTATIN CALCIUM 40 MG TABLET NG SCH (08:26)
[2022-05-29] MEDS: ASPIRIN 81 MG CHEWABLE TABLET NG SCH (08:26)
[2022-05-29] MEDS ORDERED: FUROSEMIDE 20 MG/2 ML VIAL IVP ONE (09:00)
[2022-05-29 12:51] LABS: ABG CARBOXYHEMOGLOBIN 0.5 % (0.0-1.5); ABG HCO3 27.1 mmol/L (22.0-26.0); ABG METHEMOGLOBIN 0.3 % (0.0-1.5); ABG OXYGEN CONTENT 15.5 mL/dL (15.0-23.0); ABG OXYGEN SATURATION 95.4 % (95.0-98.0); ABG OXYHEMOGLOBIN 94.6 % (94.0-100.0); ABG PCO2 38 mmHg (35-45); ABG PH 7.466 (7.35-7.450); ABG TOTAL HEMOGLOBIN 11.6 G/dL (12.0-18.0); PO2, ARTERIAL BG 78.3 mmHg (75.0-83.0); SOURCE, BLOOD GAS ARTERIAL; TEMPERATURE, FAHRENHEIT, BG 98.6 FAHREN (96.0-98.6)
[2022-05-29 12:54] LABS: ABG A-A DIFF O2 91.1 mmHg (10-20.0); O2 DEVICE,BLOOD GAS VENTILATOR (ROOM AIR); SITE, BLOOD GAS LFT RADIAL; VENT MODE, BG CPAP (ROOM AIR)
[2022-05-29 12:55] LABS: CPAP, BG 5 cm H2O; PRESSURE SUPPORT, BG 8 cm H2O; SPONTANEOUS VT, BG 328 ml
[2022-05-29] MEDS: POTASSIUM CHL 10 MEQ/WATER 50 ML IV SCH ×4 (14:09→17:36)
[2022-05-29] MEDS: POTASSIUM CHLORIDE 10% 40 MEQ/30 ML LIQUID UDCUP GT SCH (15:00)
[2022-05-29] MEDS: DEXMEDETOMIDINE HCL 400 MCG in SODIUM CHLORIDE 0.9% 96 ML IV PRN (16:21)
[2022-05-29 18:16] LABS: GLUCOSE,POINT OF CARE 107 MG/DL (70-110)
[2022-05-30] VITALS: BP 143/58
[2022-05-30] MEDS: CEFEPIME HCL 2 GM in DEXTROSE 5%-WATER 50 ML IV SCH ×2 (01:42→13:18)
[2022-05-30] MEDS: DEXMEDETOMIDINE HCL 400 MCG in SODIUM CHLORIDE 0.9% 96 ML IV PRN ×3 (02:32→22:53)
[2022-05-30 04:00] VITALS: BP 147/73
[2022-05-30 06:15] LABS: BASOPHILS % (AUTO) 1.2 % (0.0-2.0); EOSINOPHILS % (AUTO) 2.2 % (1.0-6.0); HEMATOCRIT 32.9 % (36-46); HEMOGLOBIN 10.6 g/dL (12.0-16.0); LYMPHOCYTES # (AUTO) 1.3 K/uL (1.0-4.8); LYMPHOCYTES % (AUTO) 14.9 % (22.0-44.0); MEAN CORPUSCULAR HEMOGLOBIN 24.7 pg (26.0-34.0); MEAN CORPUSCULAR HGB CONC 32.1 G/dL (31.0-37.0); MEAN CORPUSCULAR VOLUME 77 fL (80-100); MONOCYTES # (AUTO) 0.7 K/uL (0.1-1.0); NEUTROPHILS # (AUTO) 6.4 K/uL (1.8-7.7); NEUTROPHILS % (AUTO) 73.7 % (40.0-70.0); PLATELET COUNT (AUTO) 368 K/uL (150-450); RED BLOOD CELL COUNT(AUTO) 4.28 MIL/uL (4.00-5.20); RED CELL DISTRIBUTION WIDTH 21.4 % (11.5-14.5)
[2022-05-30 06:30] LABS: ANION GAP 6 mmol/L (8-16); CALCIUM, TOTAL 8.5 mg/dL (8.8-10.5); CARBON DIOXIDE 28 mmol/L (22-29); CHLORIDE 111 mmol/L (98-107); CREATININE 0.37 mg/dL (0.60-1.30); GLUCOSE,RANDOM 149 mg/dL (70-110); POTASSIUM 3.4 mmol/L (3.5-5.1); SODIUM SERUM 145 mmol/L (136-145); UREA NITROGEN, BLOOD 16 mg/dL (7-18)
[2022-05-30 06:38] LABS: GLOMERULAR FILTR. RATE CALC > 60 mL/min (>60)
[2022-05-30 08:00] VITALS: BP 172/93
[2022-05-30] MEDS: ASPIRIN 81 MG CHEWABLE TABLET NG SCH (08:31)
[2022-05-30] MEDS: ETHYL ALCOHOL 62% ANTISEPTIC NASAL SANITIZER 0.6 ML AMPUL NASAL SCH ×2 (08:31→21:34)
[2022-05-30] MEDS: METOPROLOL TARTRATE 25 MG TABLET PO SCH ×2 (08:32→21:34)
[2022-05-30] MEDS: ATORVASTATIN CALCIUM 40 MG TABLET NG SCH (08:32)
[2022-05-30] MEDS ORDERED: FUROSEMIDE 20 MG/2 ML VIAL IVP ONE (10:30)
[2022-05-30] MEDS: POTASSIUM CHLORIDE 10% 40 MEQ/30 ML LIQUID UDCUP GT PRN ×2 (11:30→16:24)
[2022-05-30] MEDS: HEPARIN SODIUM 25000 UNITS/D5W 250 ML IV PRN (11:32)
[2022-05-30 11:41] LABS: GLUCOSE,POINT OF CARE 134 MG/DL (70-110)
[2022-05-30 11:41] LABS: GLUCOSE,POINT OF CARE 117 MG/DL (70-110)
[2022-05-30 12:00] VITALS: BP 123/72
[2022-05-30] MEDS: ALBUTEROL SULFATE 2.5 MG/0.5 ML NEB SOLUTION NEB SCH ×2 (14:39→19:47)
[2022-05-30] MEDS: IPRATROPIUM BROMIDE 0.5 MG/2.5 ML NEB SOLUTION NEB SCH ×2 (14:39→19:47)
[2022-05-30] MEDS: POTASSIUM CHLORIDE 10% 40 MEQ/30 ML LIQUID UDCUP GT SCH (15:00)
[2022-05-30 16:00] VITALS: BP 115/68
[2022-05-30] MEDS: ACETAMINOPHEN 325 MG TABLET PO PRN (18:39)
[2022-05-30 20:00] VITALS: BP 125/56
[2022-05-30 22:01] LABS: GLUCOSE,POINT OF CARE 144 MG/DL (70-110)
[2022-05-30 22:01] LABS: GLUCOSE,POINT OF CARE 135 MG/DL (70-110)
[2022-05-31] VITALS: BP 121/89
[2022-05-31] MEDS: IPRATROPIUM BROMIDE 0.5 MG/2.5 ML NEB SOLUTION NEB SCH ×4 (01:07→20:06)
[2022-05-31] MEDS: ALBUTEROL SULFATE 2.5 MG/0.5 ML NEB SOLUTION NEB SCH ×4 (01:07→20:06)
[2022-05-31] MEDS: HEPARIN SODIUM 25000 UNITS/D5W 250 ML IV PRN ×2 (01:31→19:16)
[2022-05-31] MEDS: CEFEPIME HCL 2 GM in DEXTROSE 5%-WATER 50 ML IV SCH ×2 (01:31→13:04)
[2022-05-31 04:00] VITALS: BP 159/80
[2022-05-31 06:18] LABS: BASOPHILS % (AUTO) 0.1 % (0.0-2.0); EOSINOPHILS % (AUTO) 1.5 % (1.0-6.0); HEMATOCRIT 33.5 % (36-46); HEMOGLOBIN 10.7 g/dL (12.0-16.0); LYMPHOCYTES # (AUTO) 1.4 K/uL (1.0-4.8); LYMPHOCYTES % (AUTO) 13.1 % (22.0-44.0); MEAN CORPUSCULAR HEMOGLOBIN 24.8 pg (26.0-34.0); MEAN CORPUSCULAR HGB CONC 31.9 G/dL (31.0-37.0); MEAN CORPUSCULAR VOLUME 78 fL (80-100); MONOCYTES # (AUTO) 0.7 K/uL (0.1-1.0); MONOCYTES % (AUTO) 6.8 % (2.0-9.0); NEUTROPHILS # (AUTO) 8.4 K/uL (1.8-7.7); NEUTROPHILS % (AUTO) 78.5 % (40.0-70.0); PLATELET COUNT (AUTO) 388 K/uL (150-450); RED BLOOD CELL COUNT(AUTO) 4.31 MIL/uL (4.00-5.20); RED CELL DISTRIBUTION WIDTH 21.7 % (11.5-14.5)
[2022-05-31 06:29] LABS: ANION GAP 4 mmol/L (8-16); CALCIUM, TOTAL 8.8 mg/dL (8.8-10.5); CARBON DIOXIDE 33 mmol/L (22-29); CHLORIDE 107 mmol/L (98-107); CREATININE 0.42 mg/dL (0.60-1.30); GLUCOSE,RANDOM 132 mg/dL (70-110); POTASSIUM 3.5 mmol/L (3.5-5.1); SODIUM SERUM 144 mmol/L (136-145); UREA NITROGEN, BLOOD 15 mg/dL (7-18)
[2022-05-31 06:30] LABS: GLOMERULAR FILTR. RATE CALC > 60 mL/min (>60)
[2022-05-31 06:47] LABS: B-TYPE NATRIURETIC PEPTIDE 753 pg/mL (0-100)
[2022-05-31] MEDS: ACETAMINOPHEN 325 MG TABLET PO PRN ×2 (07:18→17:57)
[2022-05-31 08:00] VITALS: BP 153/83
[2022-05-31] MEDS: ASPIRIN 81 MG CHEWABLE TABLET NG SCH (08:16)
[2022-05-31] MEDS: ETHYL ALCOHOL 62% ANTISEPTIC NASAL SANITIZER 0.6 ML AMPUL NASAL SCH ×2 (08:17→20:03)
[2022-05-31] MEDS: METOPROLOL TARTRATE 25 MG TABLET PO SCH ×2 (08:17→20:03)
[2022-05-31] MEDS: ATORVASTATIN CALCIUM 40 MG TABLET NG SCH (08:17)
[2022-05-31] MEDS: DEXMEDETOMIDINE HCL 400 MCG in SODIUM CHLORIDE 0.9% 96 ML IV PRN (09:27)
[2022-05-31] MEDS ORDERED: SERTRALINE HCL 50 MG TABLET PO SCH (10:15)
[2022-05-31 12:00] VITALS: BP 155/77
[2022-05-31 16:00] VITALS: BP 169/73
[2022-05-31 17:36] LABS: THYROID STIMULATING HORMONE 34.14 uIU/mL (0.36-3.74)
[2022-05-31] MEDS: AmLODIPine BESYLATE 10 MG TABLET PO SCH (17:57)
[2022-05-31 18:21] LABS: GLUCOSE,POINT OF CARE 107 MG/DL (70-110)
[2022-05-31 20:00] VITALS: BP 171/93
[2022-05-31] MEDS: SERTRALINE HCL 100 MG TABLET PO SCH (20:03)
[2022-05-31] MEDS: PREGABALIN 50 MG CAPSULE PO SCH (20:04)
[2022-05-31] MEDS: MEMANTINE HCL 10 MG TABLET PO SCH (20:04)
[2022-05-31] MEDS: ALPRAZolam 0.5 MG TABLET PO PRN (20:09)
[2022-05-31 20:36] LABS: GLUCOSE,POINT OF CARE 102 MG/DL (70-110)
[2022-05-31] MEDS ORDERED: SIMVASTATIN 20 MG TABLET PO SCH (21:00)
[2022-05-31] MEDS ORDERED: CARVEDILOL 12.5 MG TABLET PO SCH (21:00)
[2022-05-31] MEDS ORDERED: SERTRALINE HCL 100 MG TABLET PO SCH (21:00)
[2022-05-31] MEDS ORDERED: EZETIMIBE 10 MG TABLET PO SCH (21:00)
[2022-05-31] MEDS ORDERED: CloNIDine HCL 0.1 MG TABLET PO SCH (21:00)
[2022-05-31] MEDS ORDERED: CloNIDine HCL 0.1 MG TABLET PO PRN (21:00)
[2022-06-01] VITALS (17 sets, daily range): BP systolic 124–167; BP diastolic 63–98
[2022-06-01] MEDS: CEFEPIME HCL 2 GM in DEXTROSE 5%-WATER 50 ML IV SCH ×2 (01:02→12:23)
[2022-06-01] MEDS: IPRATROPIUM BROMIDE 0.5 MG/2.5 ML NEB SOLUTION NEB SCH ×4 (02:13→19:32)
[2022-06-01] MEDS: ALBUTEROL SULFATE 2.5 MG/0.5 ML NEB SOLUTION NEB SCH ×4 (02:13→19:32)
[2022-06-01] MEDS: LEVOTHYROXINE SODIUM 137 MCG TABLET PO SCH ×2 (06:10→06:16)
[2022-06-01 06:11] LABS: GLUCOSE,POINT OF CARE 76 MG/DL (70-110)
[2022-06-01 07:04] LABS: BASOPHILS % (AUTO) 0.6 % (0.0-2.0); EOSINOPHILS % (AUTO) 2.2 % (1.0-6.0); HEMATOCRIT 35.8 % (36-46); HEMOGLOBIN 11.5 g/dL (12.0-16.0); LYMPHOCYTES # (AUTO) 1.4 K/uL (1.0-4.8); LYMPHOCYTES % (AUTO) 13.4 % (22.0-44.0); MEAN CORPUSCULAR HEMOGLOBIN 25.1 pg (26.0-34.0); MEAN CORPUSCULAR HGB CONC 32.2 G/dL (31.0-37.0); MEAN CORPUSCULAR VOLUME 78 fL (80-100); MONOCYTES # (AUTO) 0.7 K/uL (0.1-1.0); NEUTROPHILS # (AUTO) 8.2 K/uL (1.8-7.7); NEUTROPHILS % (AUTO) 76.8 % (40.0-70.0); PLATELET COUNT (AUTO) 515 K/uL (150-450)
[2022-06-01 07:05] LABS: ANION GAP 5 mmol/L (8-16); CARBON DIOXIDE 34 mmol/L (22-29); CHLORIDE 104 mmol/L (98-107); CREATININE 0.52 mg/dL (0.60-1.30); GLUCOSE,RANDOM 101 mg/dL (70-110); POTASSIUM 3.3 mmol/L (3.5-5.1); SODIUM SERUM 143 mmol/L (136-145); UREA NITROGEN, BLOOD 9 mg/dL (7-18)
[2022-06-01 07:10] LABS: GLOMERULAR FILTR. RATE CALC > 60 mL/min (>60)
[2022-06-01] MEDS ORDERED: POTASSIUM CHLORIDE 20 MEQ ER TABLET PO ONE (08:00)
[2022-06-01] MEDS: ASPIRIN 81 MG CHEWABLE TABLET NG SCH (08:16)
[2022-06-01] MEDS: PREGABALIN 50 MG CAPSULE PO SCH ×2 (08:16→20:46)
[2022-06-01] MEDS: AmLODIPine BESYLATE 10 MG TABLET PO SCH (08:16)
[2022-06-01] MEDS: ETHYL ALCOHOL 62% ANTISEPTIC NASAL SANITIZER 0.6 ML AMPUL NASAL SCH ×2 (08:17→20:45)
[2022-06-01] MEDS: ATORVASTATIN CALCIUM 40 MG TABLET NG SCH (08:17)
[2022-06-01] MEDS: METOPROLOL TARTRATE 25 MG TABLET PO SCH ×2 (08:17→20:46)
[2022-06-01] MEDS: PANTOPRAZOLE SODIUM 40 MG DR TABLET PO SCH (08:17)
[2022-06-01] MEDS: ISOSORBIDE MONONITRATE 60 MG ER TABLET PO SCH (11:26)
[2022-06-01] MEDS: SERTRALINE HCL 100 MG TABLET PO SCH ×2 (11:27→20:46)
[2022-06-01] MEDS: MEMANTINE HCL 10 MG TABLET PO SCH ×2 (11:27→20:46)
[2022-06-01] MEDS: HEPARIN SODIUM 25000 UNITS/D5W 250 ML IV PRN (12:24)
[2022-06-01] MEDS ORDERED: SODIUM BICARBONATE 50 MEQ/50 ML VIAL ONE (13:43)
[2022-06-01] MEDS ORDERED: LIDOCAINE/PF 1% 30 ML VIAL ONE (13:43)
[2022-06-01] MEDS ORDERED: VERAPAMIL HCL 2.5 MG/ML 2 ML VIAL ONE (13:43)
[2022-06-01] MEDS ORDERED: NITROGLYCERIN 50 MG/D5% WATER 250 ML ONE (13:43)
[2022-06-01] MEDS ORDERED: HEPARIN SODIUM,PORCINE 1,000 UNITS/ML 10 ML VIAL ONE (13:43)
[2022-06-01] MEDS ORDERED: IOHEXOL 350 MG/ML 100 ML VIAL ONE ×2 (13:44)
[2022-06-01] MEDS ORDERED: HEPARIN SODIUM 1000 UNITS/NS 1,000 ML ONE (13:44)
[2022-06-01] MEDS ORDERED: FentaNYL CITRATE PF 100 MCG/2 ML VIAL ONE (14:46)
[2022-06-01] MEDS ORDERED: IOHEXOL 350 MG/ML 100 ML VIAL IARTER ONE (15:00)
[2022-06-01] MEDS ORDERED: FentaNYL CITRATE PF 100 MCG/2 ML VIAL IVP ONE ×2 (15:00→15:15)
[2022-06-01] MEDS ORDERED: LIDOCAINE 1% 30 ML/SOD BICARB 8.4% 4 ML SQ ONE (15:00)
[2022-06-01] MEDS ORDERED: HEPARIN SODIUM 1000 UNITS/NS 1,000 ML IARTER ONE (15:00)
[2022-06-01] MEDS ORDERED: SODIUM CHLORIDE 0.9% 500 ML IV ONE (15:00)
[2022-06-01] MEDS ORDERED: NITROGLYCERIN/D5W 50 MG/250 ML IV BOTTLE IARTER ONE (15:00)
[2022-06-01] MEDS ORDERED: HEPARIN SODIUM,PORCINE 1,000 UNITS/ML 10 ML VIAL IARTER ONE (15:00)
[2022-06-01] MEDS ORDERED: VERAPAMIL HCL 2.5 MG/ML 2 ML VIAL IARTER ONE (15:00)
[2022-06-01] MEDS: ALPRAZolam 0.5 MG TABLET PO PRN (20:46)
[2022-06-02] VITALS (12 sets, daily range): BP systolic 117–150; BP diastolic 62–88
[2022-06-02 00:36] LABS: GLUCOMETER DEV NAME(LOC) 5S.2B; GLUCOSE,POINT OF CARE 110 MG/DL (70-110)
[2022-06-02 00:36] LABS: GLUCOMETER DEV NAME(LOC) 5S.2B; GLUCOSE,POINT OF CARE 99 MG/DL (70-110)
[2022-06-02 00:36] LABS: GLUCOMETER DEV NAME(LOC) 5S.1B; GLUCOSE,POINT OF CARE 81 MG/DL (70-110)
[2022-06-02 00:37] LABS: GLUCOMETER DEV NAME(LOC) 5S.1B; GLUCOSE,POINT OF CARE 124 MG/DL (70-110)
[2022-06-02] MEDS: CEFEPIME HCL 2 GM in DEXTROSE 5%-WATER 50 ML IV SCH ×2 (01:04→14:49)
[2022-06-02] MEDS: ALBUTEROL SULFATE 2.5 MG/0.5 ML NEB SOLUTION NEB SCH ×4 (02:00→20:00)
[2022-06-02] MEDS: IPRATROPIUM BROMIDE 0.5 MG/2.5 ML NEB SOLUTION NEB SCH ×4 (02:00→20:00)
[2022-06-02] MEDS: LEVOTHYROXINE SODIUM 137 MCG TABLET PO SCH (06:29)
[2022-06-02 08:16] LABS: GLUCOMETER DEV NAME(LOC) 5S.2B; GLUCOSE,POINT OF CARE 78 MG/DL (70-110)
[2022-06-02 08:16] LABS: GLUCOMETER DEV NAME(LOC) 5S.2B; GLUCOSE,POINT OF CARE 80 MG/DL (70-110)
[2022-06-02] MEDS: ATORVASTATIN CALCIUM 40 MG TABLET NG SCH (09:32)
[2022-06-02] MEDS: ASPIRIN 81 MG CHEWABLE TABLET NG SCH (09:32)
[2022-06-02] MEDS: AmLODIPine BESYLATE 10 MG TABLET PO SCH (09:33)
[2022-06-02] MEDS: METOPROLOL TARTRATE 25 MG TABLET PO SCH ×2 (09:33→21:20)
[2022-06-02] MEDS: ISOSORBIDE MONONITRATE 60 MG ER TABLET PO SCH (09:33)
[2022-06-02] MEDS: PANTOPRAZOLE SODIUM 40 MG DR TABLET PO SCH (09:35)
[2022-06-02] MEDS: POTASSIUM CHLORIDE 20 MEQ ER TABLET PO SCH (09:35)
[2022-06-02] MEDS: SERTRALINE HCL 100 MG TABLET PO SCH ×2 (09:35→21:21)
[2022-06-02] MEDS: MEMANTINE HCL 10 MG TABLET PO SCH ×2 (09:35→21:21)
[2022-06-02] MEDS: PREGABALIN 50 MG CAPSULE PO SCH ×2 (09:36→21:19)
[2022-06-02] MEDS: ETHYL ALCOHOL 62% ANTISEPTIC NASAL SANITIZER 0.6 ML AMPUL NASAL SCH ×2 (09:40→21:21)
[2022-06-02 20:46] LABS: GLUCOMETER DEV NAME(LOC) 5S.1B; GLUCOSE,POINT OF CARE 115 MG/DL (70-110)
[2022-06-02] MEDS: ALPRAZolam 0.5 MG TABLET PO PRN (21:21)
[2022-06-03 00:27] VITALS: BP 116/63
[2022-06-03] MEDS: CEFEPIME HCL 2 GM in DEXTROSE 5%-WATER 50 ML IV SCH ×2 (00:58→13:11)
[2022-06-03 01:15] VITALS: BP 116/63
[2022-06-03] MEDS: IPRATROPIUM BROMIDE 0.5 MG/2.5 ML NEB SOLUTION NEB SCH ×3 (02:00→13:28)
[2022-06-03] MEDS: ALBUTEROL SULFATE 2.5 MG/0.5 ML NEB SOLUTION NEB SCH ×3 (02:00→13:28)
[2022-06-03 03:56] VITALS: BP 128/60
[2022-06-03 05:15] VITALS: BP 128/60
[2022-06-03 05:51] LABS: GLUCOMETER DEV NAME(LOC) 5S.2B; GLUCOSE,POINT OF CARE 97 MG/DL (70-110)
[2022-06-03] MEDS: LEVOTHYROXINE SODIUM 137 MCG TABLET PO SCH (06:28)
[2022-06-03 08:21] VITALS: BP 138/75
[2022-06-03] MEDS: POTASSIUM CHLORIDE 20 MEQ ER TABLET PO SCH (08:33)
[2022-06-03] MEDS: ASPIRIN 81 MG CHEWABLE TABLET NG SCH (08:34)
[2022-06-03] MEDS: MEMANTINE HCL 10 MG TABLET PO SCH (08:34)
[2022-06-03] MEDS: SERTRALINE HCL 100 MG TABLET PO SCH (08:34)
[2022-06-03] MEDS: METOPROLOL TARTRATE 25 MG TABLET PO SCH (08:34)
[2022-06-03] MEDS: AmLODIPine BESYLATE 10 MG TABLET PO SCH (08:34)
[2022-06-03] MEDS: PREGABALIN 50 MG CAPSULE PO SCH (08:34)
[2022-06-03] MEDS: ETHYL ALCOHOL 62% ANTISEPTIC NASAL SANITIZER 0.6 ML AMPUL NASAL SCH (08:35)
[2022-06-03] MEDS: ATORVASTATIN CALCIUM 40 MG TABLET NG SCH (08:35)
[2022-06-03] MEDS: PANTOPRAZOLE SODIUM 40 MG DR TABLET PO SCH (08:35)
[2022-06-03 11:53] VITALS: BP 105/65
[2022-06-03] MEDS ORDERED: AMLO-258 PO (12:28)
[2022-06-03] MEDS ORDERED: ATOR40TA71 NG (12:28)
[2022-06-03] MEDS ORDERED: ALPR-707 PO (12:28)
[2022-06-03 17:26] LABS: GLUCOMETER DEV NAME(LOC) 5S.1B; GLUCOSE,POINT OF CARE 107 MG/DL (70-110)
[2022-06-03 17:31] LABS: GLUCOMETER DEV NAME(LOC) 5S.2B; GLUCOSE,POINT OF CARE 126 MG/DL (70-110)
== END 2022-06-03 14:15 | disposition home health service (06) | DRG 870 ==
LOC: EMS 19:13 → ICU 05-24 04:56 → 5S 06-01 04:35
PROVIDERS: ADMIT Internal Medicine; ATTEND Internal Medicine
PROC: 5A1955Z Respiratory Ventilation, Greater than 96 Consecutive Hours (ICD-10-PCS; principal; 2022-05-24)
PROC: 0BH17EZ Insertion of Endotracheal Airway into Trachea, Via Natural or Artificial Opening (ICD-10-PCS; 2022-05-24)
PROC: 05HD33Z Insertion of Infusion Device into Right Cephalic Vein, Percutaneous Approach (ICD-10-PCS; 2022-05-25)
PROC: 05HB33Z Insertion of Infusion Device into Right Basilic Vein, Percutaneous Approach (ICD-10-PCS; 2022-05-25)
PROC: 4A023N7 Measurement of Cardiac Sampling and Pressure, Left Heart, Percutaneous Approach (ICD-10-PCS; 2022-06-01)
PROC: B2111ZZ Fluoroscopy of Multiple Coronary Arteries using Low Osmolar Contrast (ICD-10-PCS; 2022-06-01)
PROC: B41F1ZZ Fluoroscopy of Right Lower Extremity Arteries using Low Osmolar Contrast (ICD-10-PCS; 2022-06-01)
DX: A41.1 Sepsis due to other specified staphylococcus (principal); G92.8 Other toxic encephalopathy; J96.00 Acute respiratory failure, unspecified whether with hypoxia or hypercapnia; R65.21 Severe sepsis with septic shock; I21.4 Non-ST elevation (NSTEMI) myocardial infarction; N39.0 Urinary tract infection, site not specified; E87.2 Acidosis; N17.9 Acute kidney failure, unspecified; Z20.822 Contact with and (suspected) exposure to COVID-19; D64.9 Anemia, unspecified; E03.9 Hypothyroidism, unspecified; E11.9 Type 2 diabetes mellitus without complications; E78.00 Pure hypercholesterolemia, unspecified; E86.0 Dehydration; E87.6 Hypokalemia; F13.90 Sedative, hypnotic, or anxiolytic use, unspecified, uncomplicated; G89.4 Chronic pain syndrome; I11.0 Hypertensive heart disease with heart failure; I50.9 Heart failure, unspecified; Z78.1 Physical restraint status; Z79.82 Long term (current) use of aspirin; Z79.84 Long term (current) use of oral hypoglycemic drugs; Z79.899 Other long term (current) drug therapy; Z90.710 Acquired absence of both cervix and uterus; Z88.8 Allergy status to other drugs, medicaments and biological substances
CPT/HCPCS: 31500; 36245; 36569; 36600; 70450; 71045; 71250; 71275; 74176; 76937; 80048; 80053; 80061; 80307; 81001; 81002; 82040; 82140; 82570; 82805; 82948; 82962; 83036; 83540; 83550; 83605; 83690; 83735; 83880; 84100; 84132; 84300; 84443; 84484; 84540; 85025; 85045; 85610; 85730; 86850; 86900; 86901; 87040; 87070; 87077; 87081; 87086; 87186; 87205; 87324; 87449; 87804; 92526; 92610; 93005; 93306; 93970; 94002; 94003; 94640; 94660; 97116; 97162; 97166; 97530; 97535; 99291; 99292; G0378; G0480; J0360; J0692; J0696; J1644; J1940; J2310; J2405; J2704; J3010; J3475; J3480; J3490; J7030; J7040; J7050; J7060; Q9967; 36415-L1; 36415-TC; J7613; Z7610